=== PATIENT | female | born 2000 | race Caucasian/White ===

== ENCOUNTER → 2020-10-11 | Outpatient (REF) | payer BC ==
[2020-10-11 10:33] LABS: HEMATOCRIT 46.1 % (36.0-47.0); HEMOGLOBIN 15.3 g/dl (12.0-15.5); MEAN CORPUSCULAR HEMOGLOBIN 29.8 pg (27.0-33.0); MEAN CORPUSCULAR HGB CONC 33.2 g/dl (32.0-36.5); MEAN CORPUSCULAR VOLUME 89.7 fl (80.0-96.0); PLATELET COUNT, AUTOMATED 344 10^3/uL (150-450); RED BLOOD COUNT 5.14 10^6/uL (4.00-5.40)
[2020-10-11 12:30] LABS: FREE T4 0.82 NG/DL (0.78-1.33); THYROID STIMULATING HORMONE 1.25 uIU/ML (0.463-3.98)
== END ==
LOC: M PLALAB 09:05
PROVIDERS: ATTEND Nurse Practitioner Women's Health
DX: E66.9 Obesity, unspecified (principal); R63.5 Abnormal weight gain

== ENCOUNTER → 2021-10-01 | Outpatient (CLI) | payer OTHER ==
[2021-10-01 17:55] LABS: BASO # 0.1 10^3/uL (0.0-0.2); BASO % 0.5 % (0.0-1.0); EOS # 0.1 10^3/uL (0.0-0.5); EOS % 0.7 % (0.0-3.0); HEMATOCRIT 42.2 % (36.0-47.0); HEMOGLOBIN 13.9 g/dl (12.0-15.5); LYMPH # 3.3 10^3/uL (1.5-5.0); LYMPH % 31.2 % (24.0-44.0); MEAN CORPUSCULAR HGB CONC 32.9 g/dl (32.0-36.5); MEAN CORPUSCULAR VOLUME 91.1 fl (80.0-96.0); MONO # 0.7 10^3/uL (0.0-0.8); MONO % 6.8 % (2.0-8.0); NEUTROPHILS # 6.5 10^3/uL (1.5-8.5); NEUTROPHILS % 60.3 % (36.0-66.0); PLATELET COUNT, AUTOMATED 354 10^3/uL (150-450); RED BLOOD COUNT 4.63 10^6/uL (4.00-5.40); WHITE BLOOD COUNT 10.7 10^3/uL (4.0-10.0)
[2021-10-01 18:07] LABS: HEMOGLOBIN A1c 5.1 %
[2021-10-01 18:12] LABS: ALT/SGPT 49 U/L (12-78); BILIRUBIN,DIRECT 0.2 MG/DL (0.0-0.2); BILIRUBIN,TOTAL 0.3 MG/DL (0.2-1.0); BLOOD UREA NITROGEN 14 MG/DL (7-18); CALCIUM LEVEL 9.4 MG/DL (8.5-10.1); CARBON DIOXIDE LEVEL 28 MEQ/L (21-32); CHLORIDE LEVEL 105 MEQ/L (98-107); CHOLESTEROL LEVEL 163 MG/DL (<200); CHOLESTEROL RISK RATIO 5.433 (<5); CREATININE FOR GFR 0.77 MG/DL (0.55-1.30); GLOMERULAR FILTRATION RATE > 60.0 (>60); GLUCOSE, FASTING 69 MG/DL (70-100); HDL CHOLESTEROL 30 MG/DL (>40); LDL CHOLESTEROL 85 MG/DL (<100); NON-HDL-C 133 MG/DL; SODIUM LEVEL 140 MEQ/L (136-145); TOTAL PROTEIN 7.1 GM/DL (6.4-8.2); TRIGLYCERIDES LEVEL 242 MG/DL (<150)
[2021-10-01 18:18] LABS: TOTAL 25(OH) VITAMIN D 24.2 NG/ML (30.0-100.0)
== END ==
LOC: M PLALAB 14:28
PROVIDERS: ATTEND Psychiatry & Neurology Psychiatry
DX: F41.1 Generalized anxiety disorder (principal); F32.9 Major depressive disorder, single episode, unspecified; Z62.820 Parent-biological child conflict

== ENCOUNTER → 2022-12-18 | Outpatient (REF) | payer OTHER ==
[2022-12-18 15:36] LABS: THYROID STIMULATING HORMONE 1.911 uIU/ML (0.55-4.78); TOTAL 25(OH) VITAMIN D 26.4 NG/ML (20.0-100.0)
[2022-12-18 15:39] LABS: BLOOD UREA NITROGEN 19 MG/DL (9-23); CALCIUM LEVEL 9.5 MG/DL (8.5-10.1); CARBON DIOXIDE LEVEL 26 MMOL/L (20-31); CHLORIDE LEVEL 105 MMOL/L (98-107); CHOLESTEROL LEVEL 198 MG/DL (<200); CREATININE FOR GFR 0.76 MG/DL (0.55-1.30); GLOMERULAR FILTRATION RATE > 60.0 (>60); GLUCOSE, FASTING 93 MG/DL (60-100); HDL CHOLESTEROL 36.6 MG/DL (>40); NON-HDL-C 161.4 MG/DL; POTASSIUM SERUM 4.3 MMOL/L (3.5-5.1); SODIUM LEVEL 141 MMOL/L (136-145); TRIGLYCERIDES LEVEL 187 MG/DL (<150)
== END ==
LOC: M LAB REF 11:55
PROVIDERS: ATTEND Nurse Practitioner Family
DX: N92.6 Irregular menstruation, unspecified (principal); R03.0 Elevated blood-pressure reading, without diagnosis of hypertension; E55.9 Vitamin D deficiency, unspecified; Z11.9 Encounter for screening for infectious and parasitic diseases, unspecified; E78.1 Pure hyperglyceridemia

== ENCOUNTER → 2022-12-24 | Outpatient (REF) | payer OTHER | LOC: M LAB REF 17:55 | PROVIDERS: ATTEND Nurse Practitioner Family | DX: Z68.39 Body mass index [BMI] 39.0-39.9, adult (principal) ==

== ENCOUNTER 2023-08-01 04:40 | Emergency (ER) | payer OTHER ==
[~2023-08-01] VITALS: Ht 182.9 cm; Wt 125.7 kg
[2023-08-01] MEDS ORDERED: AMOX500C (05:03)
[2023-08-01] MEDS ORDERED: LABE100T6 (05:03)
[2023-08-01] MEDS ORDERED: BUPR75TA5 (05:03)
[2023-08-01] MEDS ORDERED: METF-838 (05:03)
[2023-08-01] MEDS ORDERED: SERTRALINE (05:03)
[2023-08-01] MEDS: LIDOCAINE W/EPINEPHRINE 1% 20ML VIAL SC ONE (06:50)
[2023-08-01 07:52] VITALS: BP 131/68; TEMP 98.5; O2SAT 100
== END 2023-08-01 08:03 | disposition home or self-care (01) ==
LOC: M ED 04:40
DX: N76.4 Abscess of vulva (principal); I10 Essential (primary) hypertension; F41.9 Anxiety disorder, unspecified; F32.A Depression, unspecified; E28.2 Polycystic ovarian syndrome; Z79.2 Long term (current) use of antibiotics; Z79.4 Long term (current) use of insulin; Z79.899 Other long term (current) drug therapy

== ENCOUNTER → 2023-09-19 | Outpatient (REF) | payer OTHER ==
[~2023-09-19] MED LIST: AMOX500C; BUPR75TA5; LABE100T6; METF-838; SERTRALINE
== END ==
LOC: M SFHCWAGY 17:45
PROVIDERS: ATTEND Nurse Practitioner Family
DX: Z12.4 Encounter for screening for malignant neoplasm of cervix (principal)

== ENCOUNTER → 2023-10-09 | Outpatient (CLI) | payer OTHER | LOC: M PLALAB 14:09 | PROVIDERS: ATTEND Nurse Practitioner Family | DX: N91.2 Amenorrhea, unspecified (principal) ==

== ENCOUNTER → 2023-10-22 | Outpatient (CLI) | payer OTHER ==
[2023-10-22 13:04] LABS: HEMATOCRIT 37.2 % (36.0-47.0); HEMOGLOBIN 12.7 g/dl (12.0-15.5); MEAN CORPUSCULAR HEMOGLOBIN 30.8 pg (27.0-33.0); MEAN CORPUSCULAR HGB CONC 34.1 g/dl (32.0-36.5); MEAN CORPUSCULAR VOLUME 90.3 fl (80.0-96.0); PLATELET COUNT, AUTOMATED 256 10^3/uL (150-450); RED BLOOD COUNT 4.12 10^6/uL (4.00-5.40); WHITE BLOOD COUNT 9.3 10^3/uL (4.0-10.0)
[2023-10-22 13:32] LABS: GLUCOSE CHALLENGE TEST 1 HOUR 152 MG/DL (LESS THAN 140)
[2023-10-22 14:00] LABS: HIV 1&2 SCREEN NEGATIVE (NEGATIVE)
[2023-10-22 14:09] LABS: HEPATITIS C VIRUS ABY INDEX < 0.02 INDEX (<0.8)
[2023-10-22 14:33] LABS: GC DNA AMPLIFICATION NEGATIVE (NEGATIVE)
== END ==
LOC: M PLALAB 08:48
PROVIDERS: ATTEND Obstetrics & Gynecology
DX: Z34.03 Encounter for supervision of normal first pregnancy, third trimester (principal); Z3A.00 Weeks of gestation of pregnancy not specified

== ENCOUNTER → 2023-10-22 | Outpatient (CLI) | payer OTHER | LOC: M RAD 07:00 | PROVIDERS: ATTEND Obstetrics & Gynecology | DX: Z34.03 Encounter for supervision of normal first pregnancy, third trimester (principal); Z3A.35 35 weeks gestation of pregnancy ==

== ENCOUNTER → 2023-10-27 | Outpatient (CLI) | payer OTHER ==
[~2023-10-27] MED LIST changes: +BUPR15TA PO; +LABE100T40 PO; +METF500T13 PO; +SERT-141 PO
== END ==
LOC: M LAB 07:08
PROVIDERS: ATTEND Obstetrics & Gynecology
DX: R73.09 Other abnormal glucose (principal)

== ENCOUNTER 2023-10-28 16:53 | Outpatient (CLI) | payer OTHER ==
[~2023-10-28] VITALS: Ht 182.9 cm; Wt 127.0 kg
[~2023-10-28 16:53] MED LIST changes: -BUPR15TA PO; -LABE100T40 PO; -METF500T13 PO; -SERT-141 PO
[2023-10-28 17:20] VITALS: BP 130/70; O2SAT 99
[2023-10-28] MEDS ORDERED: SERT-141 PO (17:25)
[2023-10-28] MEDS ORDERED: LABE100T40 PO (17:25)
[2023-10-28] MEDS ORDERED: METF500T13 PO (17:25)
[2023-10-28] MEDS ORDERED: BUPR15TA PO (17:25)
== END 2023-10-28 18:10 | disposition home or self-care (01) ==
LOC: M LDO 16:53
PROVIDERS: ATTEND Specialist
DX: O10.013 Pre-existing essential hypertension complicating pregnancy, third trimester (principal); O09.33 Supervision of pregnancy with insufficient antenatal care, third trimester; Z3A.36 36 weeks gestation of pregnancy; Z79.84 Long term (current) use of oral hypoglycemic drugs; Z79.899 Other long term (current) drug therapy
CPT/HCPCS: 59025; G0463

== ENCOUNTER → 2023-10-28 | Outpatient (REF) | payer OTHER | LOC: M SFHCWAGY 09:30 | PROVIDERS: ATTEND Obstetrics & Gynecology | DX: O09.33 Supervision of pregnancy with insufficient antenatal care, third trimester (principal); Z3A.36 36 weeks gestation of pregnancy ==

== ENCOUNTER → 2023-11-05 | Outpatient (CLI) | payer OTHER ==
[~2023-11-05] MED LIST changes: +BUPR15TA PO; +LABE100T40 PO; +METF500T13 PO; +SERT-141 PO
== END ==
LOC: M RAD 09:10
PROVIDERS: ATTEND Obstetrics & Gynecology
DX: Z34.83 Encounter for supervision of other normal pregnancy, third trimester (principal); Z3A.37 37 weeks gestation of pregnancy

== ENCOUNTER → 2024-01-05 | Outpatient (REF) | payer MEDICAID, OTHER ==
[~2024-01-05] MED LIST changes: +PRENTAB9 PO
[2024-01-05 12:41] LABS: HEMOGLOBIN A1c 5.1 % (4.0-6.0)
[2024-01-05 12:59] LABS: BLOOD UREA NITROGEN 13 MG/DL (9-23); CALCIUM LEVEL 9.6 MG/DL (8.5-10.1); CARBON DIOXIDE LEVEL 27 MMOL/L (20-31); CHLORIDE LEVEL 107 MMOL/L (98-107); CHOLESTEROL LEVEL 215 MG/DL (<200); CHOLESTEROL RISK RATIO 4.66 (<5); CREATININE FOR GFR 0.77 MG/DL (0.55-1.30); GLOMERULAR FILTRATION RATE > 60.0 (>60); GLUCOSE, FASTING 83 MG/DL (60-100); HDL CHOLESTEROL 46.1 MG/DL (>40); LDL CHOLESTEROL 138.1 MG/DL (<100); NON-HDL-C 168.9 MG/DL; POTASSIUM SERUM 4.7 MMOL/L (3.5-5.1); SODIUM LEVEL 140 MMOL/L (136-145); TRIGLYCERIDES LEVEL 154 MG/DL (<150)
[2024-01-05 13:01] LABS: THYROID STIMULATING HORMONE 1.821 uIU/ML (0.55-4.78)
== END ==
LOC: M LAB REF 11:44
PROVIDERS: ATTEND Nurse Practitioner Family
DX: I10 Essential (primary) hypertension (principal); E66.9 Obesity, unspecified

== ENCOUNTER → 2024-08-31 | Outpatient (REF) | payer OTHER, MEDICAID ==
[2024-08-31 19:05] LABS: HEMOGLOBIN A1c 5.1 % (4.0-6.0)
[2024-08-31 19:09] LABS: BLOOD UREA NITROGEN 17 MG/DL (9-23); CALCIUM LEVEL 9.7 MG/DL (8.5-10.1); CARBON DIOXIDE LEVEL 26 MMOL/L (20-31); CHLORIDE LEVEL 103 MMOL/L (98-107); CHOLESTEROL LEVEL 193 MG/DL (<200); CHOLESTEROL RISK RATIO 5.06 (<5); CREATININE FOR GFR 0.67 MG/DL (0.55-1.30); GLOMERULAR FILTRATION RATE > 90.0 (>60); GLUCOSE, FASTING 95 MG/DL (60-100); HDL CHOLESTEROL 38.1 MG/DL (>40); LDL CHOLESTEROL 92.1 MG/DL (<100); NON-HDL-C 154.9 MG/DL; POTASSIUM SERUM 4.4 MMOL/L (3.5-5.1); SODIUM LEVEL 140 MMOL/L (136-145); TRIGLYCERIDES LEVEL 314 MG/DL (<150)
[2024-08-31 19:11] LABS: THYROID STIMULATING HORMONE 0.776 uIU/ML (0.55-4.78)
== END ==
LOC: M LAB REF 18:00
PROVIDERS: ATTEND Nurse Practitioner Family
DX: I10 Essential (primary) hypertension (principal); E66.9 Obesity, unspecified

== ENCOUNTER → 2025-03-04 | Outpatient (CLI) | payer OTHER | LOC: M SLEEP HO 12-31 12:10 | PROVIDERS: ATTEND Nurse Practitioner Family | DX: G47.33 Obstructive sleep apnea (adult) (pediatric) (principal) ==

== ENCOUNTER 2025-04-04 12:14 | Emergency (ER) | payer BC, OTHER ==
[~2025-04-04] VITALS: Ht 182.9 cm; Wt 152.5 kg
[~2025-04-04 12:14] MED LIST changes: +BUPR-363; -BUPR75TA5; -LABE100T6; +LABE100T91
[2025-04-04] MEDS ORDERED: LABE20TAB (12:25)
[2025-04-04 13:09] LABS: BASO # 0.0 10^3/uL (0.0-0.2); BASO % 0.3 % (0.0-1.0); EOS # 0.1 10^3/uL (0.0-0.5); EOS % 0.8 % (0.0-3.0); LYMPH # 2.8 10^3/uL (1.5-5.0); LYMPH % 29.1 % (24.0-44.0); MONO # 0.8 10^3/uL (0.0-0.8); MONO % 8.4 % (2.0-8.0); NEUTROPHILS # 5.8 10^3/uL (1.5-8.5); NEUTROPHILS % 60.9 % (36.0-66.0); PLATELET COUNT, AUTOMATED 343 10^3/uL (150-450)
[2025-04-04 13:59] LABS: ALT/SGPT 50 U/L (7.0-40); AST/SGOT 29 U/L (<34); CALCIUM LEVEL 8.7 MG/DL (8.5-10.1); CARBON DIOXIDE LEVEL 25 MMOL/L (20-31); CHLORIDE LEVEL 104 MMOL/L (98-107); CREATININE FOR GFR 0.68 MG/DL (0.55-1.30); GLOMERULAR FILTRATION RATE > 90.0 (>60); POTASSIUM SERUM 3.5 MMOL/L (3.5-5.1); SODIUM LEVEL 141 MMOL/L (136-145)
[2025-04-04 14:00] LABS: APPEARANCE, URINE CLEAR (CLEAR); BACTERIA, URINE AUTO 1+ (NEGATIVE); BILIRUBIN, URINE AUTO NEGATIVE (NEGATIVE); BLOOD, URINE BLOOD NEGATIVE (NEGATIVE); GLUCOSE, URINE (UA) AUTO NEGATIVE (NEGATIVE); KETONE, URINE AUTO NEGATIVE (NEGATIVE); LEUKOCYTE ESTERASE, URINE AUTO NEGATIVE (NEGATIVE); NITRITE, URINE AUTO NEGATIVE (NEGATIVE); PROTEIN, URINE AUTO NEGATIVE (NEGATIVE); RBC, URINE AUTO 1 /HPF (0-3); SPECIFIC GRAVITY URINE AUTO 1.003 (1.002-1.035); SQUAMOUS EPITHELIAL CELL UR AU 1 /HPF (0-6); UROBILINOGEN, URINE AUTO 0.2 mg/dL (0.0-2.0); WBC, URINE AUTO 1 /HPF (0-3)
[2025-04-04 16:29] VITALS: BP 138/76; O2SAT 98
[2025-04-04 17:03] VITALS: TEMP 98.8
== END 2025-04-04 17:14 | disposition home or self-care (01) ==
LOC: M ED 12:14
DX: I10 Essential (primary) hypertension (principal); Z32.01 Encounter for pregnancy test, result positive; E28.2 Polycystic ovarian syndrome; R94.31 Abnormal electrocardiogram [ECG] [EKG]; Z79.84 Long term (current) use of oral hypoglycemic drugs; Z79.899 Other long term (current) drug therapy; Z79.810 Long term (current) use of selective estrogen receptor modulators (SERMs)

== ENCOUNTER → 2025-05-05 | Outpatient (REF) | payer OTHER, BC ==
[~2025-05-05] MED LIST changes: +LABE20TAB
[2025-05-05 13:35] LABS: TOTAL PROTEIN,RANDOM URINE < 6.0 MG/DL (0.0-14.0)
[2025-05-05 14:05] LABS: Trichomonas vaginalis (AMP) NOT DETECTED (NEGATIVE)
[2025-05-05 14:29] LABS: GC DNA AMPLIFICATION NEGATIVE (NEGATIVE)
== END ==
LOC: M SFHCWAGY 12:37
PROVIDERS: ATTEND Obstetrics & Gynecology
DX: Z34.81 Encounter for supervision of other normal pregnancy, first trimester (principal)

== ENCOUNTER → 2025-05-16 | Outpatient (CLI) | payer BC, OTHER ==
[2025-05-16 18:01] LABS: PLATELET COUNT, AUTOMATED 355 10^3/uL (150-450)
[2025-05-16 18:14] LABS: LDH LACTATE DEHYDROGENASE 151 U/L (120-246)
[2025-05-16 18:15] LABS: ALT/SGPT 15 U/L (7.0-40); AST/SGOT < 8 U/L (<34); CREATININE FOR GFR 0.72 MG/DL (0.55-1.30); GLOMERULAR FILTRATION RATE > 90.0 (>60)
[2025-05-16 18:38] LABS: ESTIMATED AVERAGE GLUCOSE 100.0 MG/DL (60-110)
[2025-05-16 18:42] LABS: HIV 1&2 SCREEN NEGATIVE (NEGATIVE)
[2025-05-16 18:49] LABS: HEPATITIS C VIRUS ABY INDEX 0.04 INDEX (<0.8)
== END ==
LOC: M PLALAB 16:31
PROVIDERS: ATTEND Obstetrics & Gynecology
DX: O10.019 Pre-existing essential hypertension complicating pregnancy, unspecified trimester (principal); Z3A.00 Weeks of gestation of pregnancy not specified